=== PATIENT | male | born 1950 | race Caucasian/White ===

== ENCOUNTER 2021-12-16 01:17 | Emergency (ER) | payer OTHER ==
[2021-12-16] MEDS ORDERED: Sodium Chloride 0.9% 1,000 ML IV ONE (14:16)
[2022-01-09 11:47] LABS: ANION GAP 12.4 mEq/L (7-13); CHLORIDE,CL 89 mmol/L (98-107); ESTIMATED GFR 71 mL/min (>=60); SODIUM,NA 124 mmol/L (136-145)
[2022-01-09 11:48] LABS: PTT,PARTIAL THROMBOPLSTIN TIME 24.6 SEC (22.0-34.0)
[2022-01-09 11:53] LABS: CORONAVIRUS COVID-19 NAA NEGATIVE (NEGATIVE)
== END 2021-12-16 15:56 | disposition home or self-care (01) ==
LOC: DL.ED 01:17
DX: E87.1 Hypo-osmolality and hyponatremia (principal)
CPT/HCPCS: 0240U; 36415; 80053; 81003; 83605; 83735; 83880; 84484; 85025; 85379; 85610; 85730; 96360; 96361; 99285; 93005; J7030